=== PATIENT | male | born 1960 | race Hispanic/Latino ===

== ENCOUNTER 2018-11-23 11:47 | Outpatient (RCR) | payer MEDICARE ==
--- NOTE | 2018-11-21 11:53 | Diagnostic Imaging Report ---
EXAMINATION: PA and lateral views of the chest. COMPARISON: None CLINICAL HISTORY: Preoperative study for cardiac procedure DISCUSSION: The lungs are well-inflated and without focal airspace consolidation, pleural effusion, or pneumothorax. Postsurgical changes of the mediastinum with median sternotomy wires. Normal heart size. No pulmonary edema. No acute osseous abnormality. Midepigastric surgical or endoscopic clips. IMPRESSION: No acute cardiopulmonary abnormalities. Signed by: Dr. Mariano Wilson M.D. on 11/21/2018 11:50 AM
[~2018-11-23 11:47] MED LIST: ASPIRIN EC81 MG PO; LOSARTAN POTASS25 MG PO; NEORAL25 MG PO; PLAVIX75 MG PO; PREDNISONE PO; PREDNISONE5 MG PO; RAPAMUNE1 MG PO; SIMVASTATIN10 MG PO; VANCOMYCIN IV; [UNRECOGNIZED DRUG - OTHER] PO
== END 2018-11-25 ==
LOC: WCC 11:47
PROVIDERS: ATTEND Family Medicine
DX: E11.621 Type 2 diabetes mellitus with foot ulcer (principal); E11.649 Type 2 diabetes mellitus with hypoglycemia without coma; Y83.5 Amputation of limb(s) as the cause of abnormal reaction of the patient, or of later complication, without mention of misadventure at the time of the procedure; L97.411 Non-pressure chronic ulcer of right heel and midfoot limited to breakdown of skin; I70.203 Unspecified atherosclerosis of native arteries of extremities, bilateral legs; I10 Essential (primary) hypertension; E78.00 Pure hypercholesterolemia, unspecified; I25.10 Atherosclerotic heart disease of native coronary artery without angina pectoris; Z01.810 Encounter for preprocedural cardiovascular examination; Z01.811 Encounter for preprocedural respiratory examination; Z94.0 Kidney transplant status; Z94.83 Pancreas transplant status
CPT/HCPCS: 36415 ×2; 71046; 82948 ×3; 93005; 93922; 99203 ×2; G0277 ×2

== ENCOUNTER 2018-12-04 15:18 | Outpatient (RCR) | payer MEDICARE ==
[~2018-12-04 15:18] MED LIST changes: +CLOTRIMAZOLE/BETAMETHASONE 45 GM CR TP ONE; +COLLAGENASE OINTMENT 30 GM TUBE ONE
== END 2018-12-26 | disposition home or self-care, planned readmission (81) ==
LOC: WCC 15:18
PROVIDERS: ATTEND Podiatrist Foot & Ankle Surgery
DX: E11.621 Type 2 diabetes mellitus with foot ulcer (principal); E11.649 Type 2 diabetes mellitus with hypoglycemia without coma; Y83.5 Amputation of limb(s) as the cause of abnormal reaction of the patient, or of later complication, without mention of misadventure at the time of the procedure; L97.411 Non-pressure chronic ulcer of right heel and midfoot limited to breakdown of skin; I70.203 Unspecified atherosclerosis of native arteries of extremities, bilateral legs; I10 Essential (primary) hypertension; E78.00 Pure hypercholesterolemia, unspecified; I25.10 Atherosclerotic heart disease of native coronary artery without angina pectoris; Z94.83 Pancreas transplant status; Z94.0 Kidney transplant status; Z01.810 Encounter for preprocedural cardiovascular examination; Z01.811 Encounter for preprocedural respiratory examination
CPT/HCPCS: 36415 ×5; 82948 ×6; 97602 ×2; 99212; 99213 ×2; G0277 ×5